=== PATIENT | female | born 1980 ===

== ENCOUNTER 2020-11-25 21:10 | Emergency (ER) | payer MEDICARE, OTHER ==
[~2020-11-25] VITALS: Ht 152.4 cm; Wt 63.6 kg
[2020-11-25 22:27] LABS: COVID AG,FIA SOURCE NASOPHARYNGEAL
[2020-11-25 23:31] VITALS: BP 121/80
[2020-11-26] MEDS ORDERED: RISP0.5T39 PO (00:14)
[2020-11-26] MEDS ORDERED: DIPH25TA51 PO (00:14)
[2020-11-26] MEDS ORDERED: RISP2TAB45 PO (00:14)
== END 2020-11-26 01:45 | disposition home or self-care (01) ==
LOC: EMS 21:13
DX: M79.10 Myalgia, unspecified site (principal); J02.9 Acute pharyngitis, unspecified; Z20.828 Contact with and (suspected) exposure to other viral communicable diseases
CPT/HCPCS: 87426